=== PATIENT | female | born 1960 | race Caucasian/White ===

== ENCOUNTER 2022-11-15 12:42 | Emergency (ER) | payer SELFPAY ==
--- NOTE | 2022-11-15 13:22 | RAD REPORT ---
EXAM DESCRIPTION: RAD - Chest Single View - 11/15/2022 1:16 pm CLINICAL HISTORY: confusion Chest pain. COMPARISON: <Comparisons> FINDINGS: Portable technique limits examination quality. The lungs are mildly emphysematous but grossly clear. The heart is upper limit of normal in size. No displaced fractures. IMPRESSION: No acute intrathoracic process suspected.
[2022-11-15 13:34] LABS: Absolute Lymphocytes (CBC) 1.7 K/uL (0.7-4.9); Hematocrit 42.3 % (36.0-45.0); Lymphocytes % 13.6 % (15.3-44.8); MCV 89.9 fL (80-100); MPV 8.1 fL (7.6-11.3)
[2022-11-15 13:43] LABS: Protime INR 2.51
[2022-11-15 13:52] LABS: Albumin 3.8 g/dL (3.4-5.0); Bilirubin Direct 0.1 mg/dL (0-0.2); Bilirubin Indirect, Calculated 0.4 mg/dL (0.2-0.8); Bilirubin Total 0.5 mg/dL (0.2-1.0); Potassium 3.8 mEq/L (3.5-5.1); Protein, Total 8.4 g/dL (6.4-8.2); Troponin High Sensitivity 4.6 pg/mL (<58.9)
--- NOTE | 2022-11-15 14:43 | RAD REPORT ---
EXAM DESCRIPTION: CT - Head Brain Wo Cont - 11/15/2022 2:28 pm CLINICAL HISTORY: CONFUSED Headache, drowsiness COMPARISON: <Comparisons> TECHNIQUE: All CT scans are performed using dose optimization technique as appropriate and may inclu de automated exposure control or mA/KV adjustment according to patient size. FINDINGS: No intracranial hemorrhage, hydrocephalus or extra-axial fluid collection.No areas of brai n edema or evidence of midline shift. The paranasal sinuses and mastoids are clear. The calvarium is intact. IMPRESSION: No acute intracranial abnormality.
--- NOTE | 2022-11-15 14:45 | RAD REPORT ---
EXAM DESCRIPTION: CT - Head angio - 11/15/2022 2:28 pm CLINICAL HISTORY: CONFUSED Headache, drowsiness COMPARISON: Head angio dated 11/15/2022No comparisons TECHNIQUE: CT angiography of the head was performed with MIPs. All CT scans are performed using dose optimization technique as appropriate and may include automated exposure control or mA/KV adjustment according to patient size. FINDINGS: No evidence of large vessel occlusion. No evidence of aneurysm is detected. No flow-limiti ng stenosis or vascular malformation identified. Left vertebral artery is dominant. Right vertebral artery appears to terminate in PICA, normal varian t. The visualized dural venous sinuses are patent. IMPRESSION: No significant flow abnormality is detected.
[2022-11-15 14:47] LABS: Urine Bacteria <20 /HPF (<20); Urine Bilirubin NEGATIVE (Negative); Urine Blood 2+ (Negative); Urine Clarity Clear (Clear); Urine Color Light-Yellow (Yellow); Urine Glucose NEGATIVE (Negative); Urine Mucus Slight /HPF (None Seen); Urine Protein NEGATIVE (Negative); Urine RBC 21-50 /HPF (None Seen); Urine Urobilinogen Normal (Normal); Urine pH 6.5 (5.0-7.0)
--- NOTE | 2022-11-15 14:47 | RAD REPORT ---
EXAM DESCRIPTION: CT - Neck Angio - 11/15/2022 2:29 pm CLINICAL HISTORY: confused Headache, drowsiness COMPARISON: No comparisons TECHNIQUE: CT angiography of the neck vessels was performed with MIPs. All CT scans are performed using dose optimization technique as appropriate and may include automated exposure control or mA/KV adjustment according to patient size. FINDINGS: A left aortic arch is identified with normal three vessel configuration of the great vesse ls. No significant flow abnormality is seen of the common carotid bilaterally. No significant stenosis is identified involving the cervical segments of both internal carotid arteri es. Normal flow is seen within both vertebral arteries. IMPRESSION: No significant flow abnormality of the neck vessels is identified. NASCET criteria used. Mild 0-49% stenosis Moderate 50-69% stenosis Severe 70-99% stenosis
[2022-11-15 14:54] LABS: Barbiturates NEGATIVE (NEGATIVE); Benzodiazepines NEGATIVE (NEGATIVE); Cocaine NEGATIVE (NEGATIVE); METHAMPHETAM NEGATIVE (NEGATIVE); Methadone NEGATIVE (NEGATIVE); Opiates NEGATIVE (NEGATIVE); Phencyclidine NEGATIVE (NEGATIVE); THC Cannibis NEGATIVE (NEGATIVE)
--- NOTE | 2022-11-15 15:38 | EDPHYS ---
Physician Documentation [facility] Name: Cata Garcia Age: 61 yrs Sex: Female : 1960 Arrival Date: 11/15/2022 Time: 12:42 Bed 6 Private MD: ED Physician Castro Hooks HPI: 11/15 14:12 This 61 yrs old Female presents to ER via Wheelchair with complaints of Memory Loss, rn confusion. 14:13 The patient presents with confusion, disorientation. Onset: The symptoms/episode rn began/occurred last night. Possible causes: unknown. Associated signs and symptoms: Pertinent positives: confusion, Pertinent negatives: abdominal pain, ataxia, blurred vision, chest pain, diaphoresis, headache, palpitations, seizure, shortness of breath, vomiting, weakness. Current symptoms: In the emergency department the patient's symptoms have improved. The patient has not experienced similar symptoms in the past. The patient has not recently seen a physician. family reports last night began to notice confusion, disorientation, and seemed to have trouble remembering things that recently happened. No focal weakness/numbness. No vision changes. No chest pain/abd pain/vomiting/diarrhea. Reports feels like could be dehydrated. Denies ETOH or drug use. . Historical: - Allergies: 12:51 No Known Allergies; kr3 - Home Meds: 12:51 warfarin 1 mg Oral tablet daily [Active]; bisoprolol-hydrochlorothiazide 5-6.25 mg oral kr3 tablet [Active]; - PMHx: 12:51 blood clots; kr3 - PSHx: 12:51 Cholecystectomy; kr3 - Immunization history:: Adult Immunizations not up to date. - Social history:: Smoking status: Patient denies any tobacco usage or history of. - Family history:: not pertinent. - Hospitalizations: : No recent hospitalization is reported. ROS: 14:13 Constitutional: Negative for fever, chills, and weight loss, Eyes: Negative for injury, rn pain, redness, and discharge, Neck: Negative for injury, pain, and swelling, Cardiovascular: Negative for chest pain, palpitations, and edema, Respiratory: Negative for shortness of breath, cough, wheezing, and pleuritic chest pain, Abdomen/GI: Negative for abdominal pain, nausea, vomiting, diarrhea, and constipation, Back: Negative for injury and pain, : Negative for injury, bleeding, discharge, and swelling, MS/Extremity: Negative for injury and deformity, Skin: Negative for injury, rash, and discoloration, Neuro: Negative for headache, numbness, tingling, and seizure. Exam: 14:13 Constitutional: This is a well developed, well nourished patient who is awake, alert, rn appears anxious Head/Face: Normocephalic, atraumatic. Cardiovascular: Regular rate and rhythm. No pulse deficits. Respiratory: No increased work of breathing, no retractions or nasal flaring. Abdomen/GI: Soft, non-tender Skin: Warm, dry MS/ Extremity: Pulses equal, no cyanosis. Neuro: Awake and alert, GCS 15, oriented to person, place, time, and situation. Cranial nerves II-XII grossly intact. Motor strength 5/5 in all extremities. Sensory grossly intact. Cerebellar exam normal. Vital Signs: 12:48 BP 157 / 94; Pulse 79; Resp 18; Temp 98.2(TE); Pulse Ox 100% on R/A; Weight 78.93 kg; kr3 Height 5 ft. 3 in. ; Pain 0/10; 13:09 BP 145 / 92; Pulse 75; Resp 16; Pulse Ox 100% ; vg1 13:47 BP 133 / 73; Pulse 69; Resp 16; Pulse Ox 99% on R/A; Pain 0/10; ml4 14:39 BP 125 / 93; Pulse 80; Resp 20; Pulse Ox 100% on R/A; Pain 0/10; ml4 15:43 BP 127 / 71; Pulse 84; Resp 16; Pulse Ox 96% on R/A; Pain 0/10; ml4 12:48 Body Mass Index 30.82 (78.93 kg, 160.02 cm) kr3 12:48 Pain Scale: Adult kr3 13:47 Pain Scale: Adult ml4 14:39 Pain Scale: Adult ml4 15:43 Pain Scale: Adult ml4 MDM: 12:50 Patient medically screened. rn 15:34 Differential Diagnosis: CVA, electrolyte abnormality, hypoglycemia, intracranial bleed, rn TIA, UTI, volume depletion. Data reviewed: vital signs, nurses notes, lab test result(s), EKG, radiologic studies, CT scan, plain films, and as a result, I will discharge patient. Consideration of Admission/Observation Escalation of care including admission/observation considered. Pt prefers to go home, no MRI until Thursday and patient does not want to wait rest of weekend. Already on coumadin. Already back to normal. No atypical or strange behavior while here in ER. CT angios and head neg for acute findings. UA neg. . Counseling: I had a detailed discussion with the patient and/or guardian regarding: the historical points, exam findings, and any diagnostic results supporting the discharge/admit diagnosis, lab results, radiology results, the need for outpatient follow up, to return to the emergency department if symptoms worsen or persist or if there are any questions or concerns that arise at home. Response to treatment: the patient's condition has returned to base line, the patient is now symptom free, and as a result, I will discharge patient. Special discussion: Based on the history and exam findings, there is no indication for further emergent testing or inpatient evaluation. I discussed with the patient/guardian the need to see the neurologist for further evaluation of the symptoms. I discussed with the patient/guardian the need to see the primary care provider for further evaluation of the symptoms. ED course: Pt and family also report recent of father and tomorrow will be her first father's day without him, is tearful and emotional. . 11/15 13:12 Order name: Basic Metabolic Panel; Complete Time: 14:22 11/15 13:12 Order name: CBC with Diff; Complete Time: 13:45 11/15 13:12 Order name: Hepatic Function; Complete Time: 14:22 11/15 13:12 Order name: High Sensitivity Troponin; Complete Time: 14:22 11/15 13:12 Order name: Protime (+inr); Complete Time: 13:45 11/15 13:12 Order name: Ptt, Activated; Complete Time: 13:45 11/15 13:12 Order name: UDS; Complete Time: 14:56 11/15 13:12 Order name: Urinalysis w/ reflexes; Complete Time: 14:48 11/15 13:12 Order name: ETOH Level; Complete Time: 14:22 11/15 13:12 Order name: CT Head Brain wo Cont; Complete Time: 14:48 11/15 13:12 Order name: Head Angio CT; Complete Time: 14:48 11/15 13:12 Order name: Neck Angio CT; Complete Time: 14:48 rn 11/15 13:13 Order name: XRAY Chest (1 view); Complete Time: 13:45 rn 11/15 13:12 Order name: EKG; Complete Time: 13:13 rn 11/15 13:12 Order name: Accucheck; Complete Time: 14:11 rn 11/15 13:12 Order name: Cardiac monitoring; Complete Time: 13:24 rn 11/15 13:12 Order name: EKG - Nurse/Tech; Complete Time: 13:41 rn 11/15 13:12 Order name: IV Saline Lock; Complete Time: 13:15 rn 11/15 13:12 Order name: Labs collected and sent; Complete Time: 13:30 rn 11/15 13:12 Order name: NPO; Complete Time: 13:21 rn 11/15 13:12 Order name: O2 Per Protocol; Complete Time: 13:17 rn 11/15 13:12 Order name: O2 Sat Monitoring; Complete Time: 13:17 rn Administered Medications: No medications were administered Disposition Summary: 11/15/22 15:38 Discharge Ordered Location: Home rn Problem: new rn Symptoms: have improved rn Condition: Stable rn Diagnosis - Altered mental status, unspecified rn Followup: rn - With: Private Physician - When: As needed - Reason: Recheck today's complaints, Re-evaluation by your physician Discharge Instructions: - Discharge Summary Sheet rn - Confusion rn Forms: - Medication Reconciliation Form rn - Thank You Letter rn - Antibiotic harness rigger - Prescription Opioid Use rn Signatures: Dispatcher [employer] Castro Foster MD MD rn Reid, Kelley, RN RN kr3 Corrections: (The following items were deleted from the chart) 13:33 13:13 Urinalysis+U.LAB.BRZ ordered. HERMILOPA DEVONTE
--- NOTE | 2022-11-15 15:38 | ER ---
Nurse's Notes [facility] Name: Cata Garcia Age: 61 yrs Sex: Female : 1960 Arrival Date: 11/15/2022 Time: 12:42 Bed 6 Private MD: Diagnosis: Altered mental status, unspecified Presentation: 11/15 12:48 Chief complaint: Patient's son or daughter states: called daughter this Am around 10 kr3 distraught, daughter states mom could not remember how she got to boyfriends house, mom could not remember conversation between daughter and boyfriend that had just been discussed this morning. Coronavirus screen: Vaccine status: Patient reports being unvaccinated. Ebola Screen: Patient denies travel to an Ebola-affected area in the 21 days before illness onset. Initial Sepsis Screen: Does the patient meet any 2 criteria? No. Patient's initial sepsis screen is negative. Does the patient have a suspected source of infection? No. Patient's initial sepsis screen is negative. Risk Assessment: Do you want to hurt yourself or someone else? Patient reports no desire to harm self or others. Onset of symptoms was November 15, 2022. 12:48 Method Of Arrival: Wheelchair kr3 12:48 Acuity: BRIAN 3 kr3 Triage Assessment: 12:56 General: Appears distressed, Behavior is cooperative, crying. Pain: Denies pain. EENT: kr3 No deficits noted. Neuro: Level of Consciousness is awake, alert, obeys commands, Oriented to person. Cardiovascular: Patient's skin is warm and dry. Respiratory: Airway is patent Respiratory effort is even, unlabored, Respiratory pattern is regular, symmetrical. GI: No signs and/or symptoms were reported involving the gastrointestinal system. : No signs and/or symptoms were reported regarding the genitourinary system. Derm: No signs and/or symptoms reported regarding the dermatologic system. Musculoskeletal: No deficits noted. Historical: - Allergies: 12:51 No Known Allergies; kr3 - Home Meds: 12:51 warfarin 1 mg Oral tablet daily [Active]; bisoprolol-hydrochlorothiazide 5-6.25 mg oral kr3 tablet [Active]; - PMHx: 12:51 blood clots; kr3 - PSHx: 12:51 Cholecystectomy; kr3 - Immunization history:: Adult Immunizations not up to date. - Social history:: Smoking status: Patient denies any tobacco usage or history of. - Family history:: not pertinent. - Hospitalizations: : No recent hospitalization is reported. Screenin:05 [facility] ED Fall Risk Assessment (Adult) History of falling in the last 3 months, vg1 including since admission Yes- single mechanical fall (1 pt) Confusion or Disorientation No (0 pts) Intoxicated or Sedated No (0 pts) Impaired Gait No (0 pts) Mobility Assist Device Used No (0 pt) Altered Elimination No (0 pt) Score/Fall Risk Level 0 - 2 = Low Risk Oriented to surroundings, Maintained a safe environment, Educated pt \T\ family on fall prevention, incl call for assistance when getting out of bed, Assessed \T\ reinforced patient's understanding of fall precautions. Abuse screen: Denies threats or abuse. Denies injuries from another. Nutritional screening: No deficits noted. Tuberculosis screening: No symptoms or risk factors identified. Assessment: 13:05 General: Appears uncomfortable, Behavior is anxious, crying. Pain: Denies pain. Neuro: vg1 Level of Consciousness is awake, alert, obeys commands, Oriented to person, place, time, situation, Certified Nurse Practitioner are equal bilaterally Moves all extremities. Gait is unable to assess. Speech is normal, Facial symmetry appears normal, Intact Denies weakness blurred vision dizziness, numbness headache. Cardiovascular: Patient's skin is warm and dry. Respiratory: Airway is patent Respiratory effort is even, unlabored. GI: Patient currently denies diarrhea, nausea, vomiting. : No signs and/or symptoms were reported regarding the genitourinary system. EENT: No signs and/or symptoms were reported regarding the EENT system. Derm: Skin is pink, warm \T\ dry. Musculoskeletal: Circulation, motion, and sensation intact. 14:39 Reassessment: Patient appears in no apparent distress at this time. No changes from ml4 previously documented assessment. Patient denies pain at this time. 15:44 Reassessment: Patient appears in no apparent distress at this time. No changes from ml4 previously documented assessment. Patient denies pain at this time. General: Behavior is calm, cooperative, appropriate for age. Neuro: No deficits noted. Level of Consciousness is awake, alert, obeys commands, Oriented to person, place, time, situation, Appropriate for age. Vital Signs: 12:48 BP 157 / 94; Pulse 79; Resp 18; Temp 98.2(TE); Pulse Ox 100% on R/A; Weight 78.93 kg; kr3 Height 5 ft. 3 in. ; Pain 0/10; 13:09 BP 145 / 92; Pulse 75; Resp 16; Pulse Ox 100% ; vg1 13:47 BP 133 / 73; Pulse 69; Resp 16; Pulse Ox 99% on R/A; Pain 0/10; ml4 14:39 BP 125 / 93; Pulse 80; Resp 20; Pulse Ox 100% on R/A; Pain 0/10; ml4 15:43 BP 127 / 71; Pulse 84; Resp 16; Pulse Ox 96% on R/A; Pain 0/10; ml4 12:48 Body Mass Index 30.82 (78.93 kg, 160.02 cm) kr3 12:48 Pain Scale: Adult kr3 13:47 Pain Scale: Adult ml4 14:39 Pain Scale: Adult ml4 15:43 Pain Scale: Adult ml4 ED Course: 12:43 Patient arrived in ED. [id number] 12:49 Castro Hooks MD is Attending Physician. rn 12:51 Triage completed. kr3 12:57 Patient placed on a stretcher. Arm band placed on right wrist. kr3 13:05 Beverly Zavala, RN is Primary Nurse. vg1 13:08 Patient has correct armband on for positive identification. Bed in low position. Call ml4 light in reach. Side rails up X2. Adult w/ patient. 13:08 No provider procedures requiring assistance completed. Inserted saline lock: 20 gauge ml4 in right antecubital area, using aseptic technique. 13:12 Client placed on continuous cardiac and pulse oximetry monitoring. NIBP monitoring ml4 applied. highway engineer on. Door closed. Warm blanket given. Head of bed elevated. Patient is placed in psych hold. 13:12 X-ray(s) taken. ml4 13:14 No apparent distress. Appears tearful. ml4 13:18 XRAY Chest (1 view) In Process Unspecified. EDMS 13:46 EKG done, by ED staff, reviewed by Castro Hooks MD. ml4 14:[address] via stretcher. ml4 14:29 CT Head Brain wo Cont In Process Unspecified. EDMS 14:[address] In Process Unspecified. EDMS 14:[address] In Process Unspecified. EDMS 14:30 No apparent distress. Awaiting radiology results. Patient moved back from CT. ml4 14:40 No apparent distress. Resting quietly. Awaiting lab results. ml4 14:40 Urine collected: ambulated w/ steady gait independently to RR and returned to stretcher ml4 w/ call light in reach and on monitor. 14:41 Warm blanket given. Verbal reassurance given. ml4 14:50 UDS Sent. ml4 15:45 IV discontinued, intact, No redness/swelling at site. ml4 Administered Medications: No medications were administered Medication: 13:05 VIS not applicable for this client. vg1 Outcome: 15:38 Discharge ordered by . rn 15:44 Discharged to home ambulatory, with family. ml4 15:44 Condition: good 15:44 Discharge instructions given to patient, family, Instructed on discharge instructions, follow up and referral plans. Demonstrated understanding of instructions, follow-up care. 15:48 Patient left the ED. vg1 Signatures: Dispatcher [employer] EDCastro Gaffney MD MD rn Garcia, Victoria, RN RN vg1 Mandy Pardo [email or web address] Dianne Schroeder, RN RN kr3 MAYTE Covington, Clifford, RN RN ml4 Corrections: (The following items were deleted from the chart) 12:57 12:57 Arm band placed on right wrist. Patient placed in an exam room, in a wheelchair, kr3 kr3 12:59 12:48 Chief complaint: Patient's son or daughter states: called daughter this Am kr3 prince, daughter states mom could not remember how she got to boyfriends house, mom could not remember conversation between daughter and boyfriend that had just been discussed this morning. kr3 13:10 13:09 BP 145 / 92; Pulse 16bpm; Resp 75bpm; Pulse Ox 100%; vg1 vg1
[2022-11-15 16:12] VITALS: TEMP 98.2
[2022-11-15 16:26] VITALS: BP 127/71; O2SAT 96
--- NOTE | 2022-11-17 17:54 | EKG ---
Test Date: 2022-11-15 Test Time: 13:36:20 [employer] Professor: TIRSO MEASUREMENT RESULTS: Intervals: Rate: 68 AL: 172 QRSD: 138 QT: 432 QTc: 459 [place]: P: 93 AL: 172 QRS: -52 T: 17 INTERPRETIVE STATEMENTS: Normal sinus rhythm Right bundle branch block Left anterior fascicular block Bifascicular block Abnormal ECG Compared to ECG 12/10/2009 06:09:17 Right bundle-branch block now present Left anterior fascicular block now present Bifascicular block now present Sinus arrhythmia no longer present ST (T wave) deviation no longer present Electronically Signed On 11-17-22 17:50:21 CDT by Darell Smith
== END 2022-11-15 15:48 | disposition home or self-care (01) ==
LOC: ER 12:42
DX: R41.82 Altered mental status, unspecified (principal)
CPT/HCPCS: 36415; 70450; 70496; 70498; 71045; 80048; 80076; 80307; 81001; 82077; 84484; 85025; 85610; 85730; 93005; 99285; Q9967